=== PATIENT | female | born 1975 | race Caucasian/White ===

== ENCOUNTER 2020-01-13 07:27 | Inpatient (IN) | payer MEDICAID ==
[2020-01-13] MEDS ORDERED: Acetaminophen 500 MG Tab PO ONE (07:45)
[2020-01-13] MEDS ORDERED: Scopolamine 1.5 MG Transdermal Patch TOP ONE (07:45)
[2020-01-13] MEDS ORDERED: Albuterol 8 GM Inhaler INH ONE (08:30)
[2020-01-13] MEDS ORDERED: Dextrose 5%-Lactated Ringers 1,000 ML IV SCH (09:00)
[2020-01-13] MEDS ORDERED: Levofloxacin/Dextrose 5%-Water 500 MG in Premix Bag 1 BAG IV ONE (09:00)
[2020-01-13] MEDS ORDERED: ALBUTEROL INH ONE (09:00)
[2020-01-13] MEDS ORDERED: Ketamine 50 MG in Sodium Chloride 0.9% 49.5 ML IV SCH (09:15)
[2020-01-13] MEDS ORDERED: Ketamine 500 MG/5 ML MDV IV SCH (09:15)
[2020-01-13] MEDS ORDERED: Magnesium Sulfate 3 GM in Sodium Chloride 0.9% 100 ML IV SCH (09:15)
[2020-01-13] MEDS ORDERED: fentaNYL 250 MCG/5 ML SDV ONE (09:25)
[2020-01-13] MEDS ORDERED: Midazolam 1 MG/ML 2 ML SDV ONE (09:25)
[2020-01-13] MEDS ORDERED: Rocuronium 50 MG/5 ML Vial ONE (09:26)
[2020-01-13] MEDS ORDERED: Succinylcholine 200 MG/10 ML MDV ONE (09:26)
[2020-01-13] MEDS ORDERED: Dexamethasone 4 MG/ML SDV ONE (09:26)
[2020-01-13] MEDS ORDERED: Propofol 200 MG/20 ML SDV ONE (09:26)
[2020-01-13] MEDS ORDERED: Glycopyrrolate 0.2 MG/ML 5 ML MDV ONE (09:26)
[2020-01-13] MEDS ORDERED: Ondansetron 4 MG/2 ML SDV ONE (09:26)
[2020-01-13] MEDS ORDERED: Neostigmine Methylsulfate 1 MG/ML 5 ML Syringe ONE (09:26)
[2020-01-13] MEDS ORDERED: cefOXitin 2 GM Vial ONE (10:10)
[2020-01-13] MEDS ORDERED: Lactated Ringers 1,000 ML ONE (11:36)
[2020-01-13] MEDS: Levofloxacin 500 MG/20 ML SDV ONE ×2 (12:07→12:45)
[2020-01-13] MEDS ORDERED: fentaNYL 100 MCG/2 ML SDV ONE (12:41)
[2020-01-13] MEDS ORDERED: fentaNYL 100 MCG/2 ML SDV IVPUSH ONE (13:25)
[2020-01-13] MEDS ORDERED: hydrOXYzine HCL 100 MG/2 ML SDV IM ONE (13:25)
[2020-01-13] MEDS ORDERED: Cyclobenzaprine 10 MG Tab PO PRN (14:16)
[2020-01-13] MEDS: Dextrose 5%-Lactated Ringers 1,000 ML IV SCH (14:29)
[2020-01-13] MEDS ORDERED: Metoclopramide 10 MG/2 ML SDV IVPUSH PRN (15:00)
[2020-01-13] MEDS ORDERED: Labetalol 20 MG/4 ML Syringe IVPUSH PRN (15:00)
[2020-01-13] MEDS ORDERED: Acetaminophen 500 MG Tab PO PRN (15:00)
[2020-01-13] MEDS ORDERED: Ondansetron 4 MG/2 ML SDV IVPUSH PRN (15:00)
[2020-01-13] MEDS ORDERED: Calcium Gluconate 10% 1 GM/10 ML SDV IVPUSH PRN (15:00)
[2020-01-13] MEDS ORDERED: hydrOXYzine HCL 100 MG/2 ML SDV IM PRN (15:00)
[2020-01-13] MEDS ORDERED: HYDROmorphone 1 MG/ML Syringe IV PRN (15:00)
[2020-01-13] MEDS ORDERED: diphenhydrAMINE 50 MG/ML SDV IVPUSH PRN (15:00)
[2020-01-13] MEDS ORDERED: Albuterol/Ipratropium 3.0-0.5 MG/3 ML Neb Soln INH PRN (15:00)
[2020-01-13] MEDS ORDERED: MVI, Adult with Vitamin K 10 ML, Thiamine 200 MG, Chromium/Copper/Mang/Selen/Zn 1 ML in... IV SCH ×4 (16:00)
[2020-01-13] MEDS ORDERED: Pantoprazole 40 MG Vial IVPUSH SCH (16:00)
[2020-01-13] MEDS: Albuterol/Ipratropium 3.0-0.5 MG/3 ML Neb Soln INH SCH ×2 (16:30→22:45)
[2020-01-13] MEDS: Acetaminophen 500 MG Tab PO SCH (16:30)
[2020-01-13] MEDS: Heparin Sodium 5,000 Units/ML Vial SUBCUT SCH (21:36)
[2020-01-13] MEDS: HYDROmorphone 0.5 MG/0.5 ML Syringe IVPUSH PRN (21:37)
[2020-01-14] MEDS: Dextrose 5%-Lactated Ringers 1,000 ML IV SCH ×3 (00:24→15:46)
[2020-01-14] MEDS: Acetaminophen 500 MG Tab PO SCH ×3 (00:24→15:46)
[2020-01-14] MEDS: HYDROmorphone 0.5 MG/0.5 ML Syringe IVPUSH PRN (02:56)
[2020-01-14] MEDS ORDERED: Iopamidol 612 MG/ML 50 ML SDV PO STA (04:23)
[2020-01-14] MEDS ORDERED: hydrOXYzine HCl 25 MG Tab PO PRN (07:17)
[2020-01-14] MEDS: Albuterol/Ipratropium 3.0-0.5 MG/3 ML Neb Soln INH SCH ×4 (07:23→20:09)
[2020-01-14] MEDS: Heparin Sodium 5,000 Units/ML Vial SUBCUT SCH ×2 (08:25→20:09)
[2020-01-14] MEDS: oxyCODONE 5 MG Tab PO PRN ×3 (08:25→20:09)
[2020-01-14] MEDS: Cetirizine 10 MG Tab PO SCH (08:26)
[2020-01-14] MEDS: SCOPOLAMINE PATCH CHECK TOP SCH (08:26)
[2020-01-14] MEDS ORDERED: Celecoxib 200 MG Cap PO SCH (09:00)
--- NOTE | 2020-01-14 09:06 | CR ---
[facility]I [facility] HISTORY: Postbariatric surgery FINDINGS: Patient swallowed water-soluble contrast. Upright views of the abdomen show no evidence of extravasation or obstruction. There is a surgical drain in the left upper quadrant IMPRESSION: Status post bariatric surgery No extravasation or obstruction seen
[2020-01-14] MEDS: Levofloxacin/Dextrose 5%-Water 500 MG in Premix Bag 1 BAG IV SCH (10:25)
--- NOTE | 2020-01-14 10:54 | PN ---
DATE OF SERVICE: 01/14/2020 SUBJECTIVE: Candy is postop day #1 following a laparoscopic Pam-en-Y gastric bypass surgery. Upper GI was normal. Vital signs have been stable. Oral intake 300. Urine output 3000. JESSI drain put out 40 mL of a light pink drainage. Pain has been controlled with IV Dilaudid. Remainder of review of symptoms negative for any pertinent positives and negatives. OBJECTIVE: GENERAL: Candy is a 44-year-old female. VITAL SIGNS: TPR at 0300, 98.2, 82, 16, blood pressure 128/67. HEENT: Negative. NECK: Supple. HEART: Regular rate and rhythm. LUNGS: Clear. ABDOMEN: Dressings dry and intact. JESSI drain intact. Abdominal binder is on. EXTREMITIES: Without peripheral edema. ASSESSMENT: 1. Diagnostic laparoscopy with: a. Laparoscopic Pam-en-Y gastric bypass surgery. b. Liver biopsy. c. Repair of left parasternal hernia. d. Repair of paraesophageal hernia. e. Partial gastrectomy.2. Esophagogastric dilatation, 48-Armenian. POSTOPERATIVE DIAGNOSES: 1. Morbid obesity. 2. Hepatomegaly. 3. Paraesophageal diaphragmatic hernia. 4. Left parasternal diaphragmatic hernia. 5. 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 6. Esophageal stricture. Date of procedure 01/13/2020. Surgeon: Parveen Mooney MD. PLAN: 1. Discontinue Celebrex. The patient had an anaphylactic reaction to sulfa, but there is a sulfa component in Celebrex. 2. Dressing off, may shower. 3. Step 2 gastric bypass diet with no cereal. 4. Decrease IV to 100 mL per hour. 5. Discontinue IV Dilaudid. 6. Atarax 25 mg p.o. q.4 hours p.r.n. pain. 7. Zofran ODT 4 mg every 4 hours p.r.n. nausea, vomiting. 8. Communication order to have 3 med cups at bedside to drink 1 every 20 minutes, which equals 3 per hour to assure adequate oral intake. Continue use of incentive spirometer 10 times every hour while awake and ambulate at least 6 times a day. 9. We will evaluate p.r.n. or in a.m. Rosaura Montana PA-C /[id number]
[2020-01-14] MEDS ORDERED: MVI, Adult with Vitamin K 10 ML, Thiamine 200 MG, Chromium/Copper/Mang/Selen/Zn 1 ML in... IV SCH ×4 (16:00)
[2020-01-14] MEDS ORDERED: Pantoprazole 40 MG Delayed-Release Granules 1 Packet PO SCH (16:30)
[2020-01-15] MEDS: Acetaminophen 500 MG Tab PO SCH ×2 (00:30→09:33)
[2020-01-15] MEDS: Ondansetron 4 MG Tab.DIS PO PRN ×2 (00:37→09:32)
[2020-01-15] MEDS: Dextrose 5%-Lactated Ringers 1,000 ML IV SCH (01:14)
[2020-01-15] MEDS: oxyCODONE 5 MG Tab PO PRN ×2 (04:28→09:32)
[2020-01-15] MEDS: Albuterol/Ipratropium 3.0-0.5 MG/3 ML Neb Soln INH SCH (07:43)
[2020-01-15 08:05] VITALS: BP 129/74; PULSE 84
[2020-01-15] MEDS ORDERED: Cyanocobalamin (Vitamin B12) 1,000 MCG/ML SDV IM ONE (09:00)
[2020-01-15] MEDS: Levofloxacin/Dextrose 5%-Water 500 MG in Premix Bag 1 BAG IV SCH (09:27)
[2020-01-15] MEDS: Heparin Sodium 5,000 Units/ML Vial SUBCUT SCH (09:34)
[2020-01-15] MEDS: Cetirizine 10 MG Tab PO SCH (09:34)
[2020-01-15] MEDS: SCOPOLAMINE PATCH CHECK TOP SCH (10:17)
--- NOTE | 2020-01-16 12:07 | DISCH ---
FINAL DIAGNOSES: 1. Morbid obesity. 2. Paraesophageal diaphragmatic hernia. 3. Left parasternal hernia. 4. Area of ischemic gastric pouch, status post formation of gastric pouch requiring additional gastric resection. 5. Esophageal stricture. 6. History of asthma. 7. History of migraines. OPERATIVE PROCEDURES: Done on 01/12: 1. Diagnostic laparoscopy with: a. Laparoscopic Pam-en-Y gastric bypass with long limb gastroenterostomy. b. Malvin-Cut needle liver biopsy. c. Repair of left parasternal hernia. d. Repair of paraesophageal diaphragmatic hernia. e. Partial gastrectomy. 2. Esophageal dilation. SUMMARY: This 44-year-old female presenting with longstanding morbid obesity and increasingly significant comorbidities. After preoperative evaluation and discussion, the patient underwent the above procedures. The patient of note was found to have a left parasternal hernia which was repaired in addition to the diaphragmatic paraesophageal type hernia. We were unable to pass through the area of the upper esophageal sphincter. The 25 mm EEA stapler anvil which required esophageal dilation intraoperatively, which was accomplished without difficulty. Postoperatively, the patient has done well. At this point, she is on step-2 diet and pain is managed with combination of Tylenol and some oxycodone. She will be discharged home on her usual medications other than holding the vitamins and other supplements until after the first appointment plus Tylenol 1 g q.6 hours p.r.n., oxycodone 5 mg q.6 hours p.r.n. pain #30, and we will send her home with 2 doses of milk of magnesia. Followup will be with Rosaura Montana on Friday, 01/23 at 8:20.
--- NOTE | 2020-01-20 11:45 | OR ---
DATE OF PROCEDURE: 01/13/2020 SURGEON: Parveen Mooney MD PREOPERATIVE DIAGNOSIS: Morbid obesity. POSTOPERATIVE DIAGNOSES: 1. Morbid obesity. 2. Marked hepatomegaly. 3. Paraesophageal diaphragmatic hernia. 4. Left parasternal diaphragmatic hernia. 5. Area of ischemia of gastric pouch status post formation of gastric pouch. 6. Esophageal stricture. OPERATIVE PROCEDURES: 1. Diagnostic laparoscopy with: a. Laparoscopic Pam-en-Y gastric bypass with long limb gastroenterostomy (59398). b. Malvin-Cut needle liver biopsy (13614). c. Repair of left parasternal hernia (01950). d. Repair of paraesophageal diaphragmatic hernia (04037). e. Partial gastrectomy (78167). 2. Esophageal dilation (67095). ANESTHESIA: General. FOR[employer] PROFESSOR: Rosaura Montana PA-C INDICATIONS FOR PROCEDURE: This is a 44-year-old presenting with longstanding morbid obesity and increasingly significant comorbidities. After preoperative evaluation and discussion, she wished to proceed with a gastric bypass procedure. Potential risks of the procedure including bleeding, infection, leaks from various GI tract closures, problems with bowel obstruction over time as well as possibility of cardiopulmonary, septic, or hemorrhagic complications leading to were discussed, and the patient wishes to proceed. DETAILS OF PROCEDURE: The patient was taken to the operating room. After general endotracheal anesthesia was induced, she was placed in a lithotomy position and the abdomen prepped and draped. 15 cm inferior and 5 cm left of the xiphoid process, a transverse incision was made and the peritoneal cavity entered under direct vision with an Optiview trocar, inflated to 15 mmHg pressure of CO2. Laparoscope was then reinserted. No underlying trocar insertion site injuries were seen. Following this, 5 additional trocars were placed across the upper and mid abdomen. Bilateral transversus abdominis plane blocks were then placed and the upper abdomen examined. The patient was noted to have marked hepatomegaly with liver volume being roughly 2 to 3 times normal and liver grossly fatty infiltrated. Malvin-Cut needle biopsies were obtained from left lobe of the liver. Minimal bleeding from the biopsy sites was controlled with electrocautery. The patient was noted at this point to have a left parasternal hernia. This initially contained some omentum within it, and given this, it was felt to be best repaired. Stab wounds were then placed in the left subcostal area and using suture passer, several sutures were placed with these being 0 Vicryl sutures closing the hernia and its fascial edge inferiorly. Once these were completed and tied, that repair appeared to be satisfactory. At this point, the omentum was retracted superiorly and the small bowel identified with ligament of Treitz. Small bowel was then traced out 125 cm distal to that point, where it was divided with a FIDENCIO stapler. Small bowel was then traced out additional 175 cm where the [id number] enteroenterostomy was accomplished with internal firing of the Endo-FIDENCIO 60 mm stapler, common opening was then closed transversely with the same stapler and angles anastomosed and mesenteric defect approximated with some 0 Ethibond stitch along with 4 mL of fibrin sealant. The divided end of the Pam limb was then from the mesentery for a few centimeters, which allowed an antecolic position of the Pam limb up to the level of the gastroesophageal junction without tension. The liver was then retracted anteriorly. The patient was noted to have moderate-sized paraesophageal hernia with prolapse of perigastric fat along with a portion of fundus in a plane anterior to the course of the esophagus. This was reduced and the peritoneum overlying was incised and reflected downward. An anterior repair of the diaphragmatic defect was then accomplished with 0 Ethibond sutures reinforced with PTFE pledgets. Gastrointestinal catheter was then inflated to 15 mL and pulled up snugly against the EG junction. The gastric wall over the apex balloon was then marked with electrocautery and balloon catheter deflated and pulled up from the esophagus. The lesser omental tissue adjacent to the gastric cardia was then incised allowing dissection behind the stomach at that level. Pouch formation was initiated with transverse firing of the FIDENCIO stapler at the level of cauterized leni on the gastric cardia and then completed with some additional firings of the FIDENCIO erwin up to and through the angle of His. Upon completion of the pouch, there was a notable area of ischemia in the distal aspect of the gastric pouch. This was retracted with some additional 2 firings of the FIDENCIO purple loads sent as a separate specimen. The anvil of a 25 mm EEA stapler was then attempted to be passed. This was attached to the Palermo sump type, which was brought down through the mouth, but taken out of the small opening into the gastric pouch. Despite various maneuvers and full muscle relaxation, the anvil could not be passed through the area of the upper esophagus. Given this, this was then pulled back out with the rescue strain. Esophagoscopy was then undertaken which showed a narrowing in the area of the upper esophageal sphincter likely related to some chronic reflux. Guidewire was passed. Upon removal of the scope, Savary dilator with 48-Bruneian diameter was passed over the wire, and at that point, the wire and dilator were removed. The anvil attached to the Palermo sump tube was then reintroduced and then this was easily passed from there brining the anvil into the area of the gastric pouch without difficulty. The Pam limb was then opened and main body of EEA stapler passed several centimeters into the lumen of small bowel, brought up the anvil and united with it, thus creating the gastrojejunostomy. Upon removal of the stapler, double donuts of the mucosa were noted within it. Small bowel was closed off with a vascular staple line. Gastrojejunostomy was reinforced with some 3-0 Vicryl seromuscular stitch along with fibrin sealant. A leak test was accomplished with injection of 120 mL of air in the gastric pouch while it was submerged with a cefoxitin containing saline solution. No leaks were identified. A single Peewee- [place] drain was then placed in the left lateral trocar site and positioned adjacent to the gastrojejunostomy, from there up into the splenic fossa. The trocars were then sequentially removed and the peritoneal cavity deflated. Incisions were closed with 4-0 Vicryl skin stitch and the patient was taken to the recovery room in satisfactory condition. Physician culinary assistant, Rosaura Montana, played an essential role in assisting in this case, helping to position the patient, retract structures as needed, as well as suturing and cutting sutures when indicated. Her presence improved patient safety and decreased operative time. Parveen Mooney MD /[id number]
== END 2020-01-15 10:46 | disposition home or self-care (01) | DRG 621 ==
LOC: JP.SDSSCHI 07:27 → JP.SDS 07:27 → EDSTATUS 11:15 → JP.2SS 13:05
PROVIDERS: ADMIT Surgery; ATTEND Surgery
PROC: 0D164ZA Bypass Stomach to Jejunum, Percutaneous Endoscopic Approach (ICD-10-PCS; principal; 2020-01-13)
PROC: 0FB24ZX Excision of Left Lobe Liver, Percutaneous Endoscopic Approach, Diagnostic (ICD-10-PCS; 2020-01-13)
PROC: 0BQT4ZZ Repair Diaphragm, Percutaneous Endoscopic Approach (ICD-10-PCS; 2020-01-13)
PROC: 0BQT4ZZ Repair Diaphragm, Percutaneous Endoscopic Approach (ICD-10-PCS; 2020-01-13)
PROC: 0D754ZZ Dilation of Esophagus, Percutaneous Endoscopic Approach (ICD-10-PCS; 2020-01-13)
PROC: 0DB64ZZ Excision of Stomach, Percutaneous Endoscopic Approach (ICD-10-PCS; 2020-01-13)
DX: E66.01 Morbid (severe) obesity due to excess calories (principal); K44.9 Diaphragmatic hernia without obstruction or gangrene; K22.2 Esophageal obstruction; J45.20 Mild intermittent asthma, uncomplicated; Z90.49 Acquired absence of other specified parts of digestive tract; R16.0 Hepatomegaly, not elsewhere classified; Z68.39 Body mass index [BMI] 39.0-39.9, adult
CPT/HCPCS: 36415; 74240; 74240-26; 80053; 81025; 83735; 84100; 86850; 86900; 86901; 88307; 88313; 93005; 93010; 94640; 94762; A9270-GY; C9113; J0171; J0330; J0694; J1100; J1170; J1644; J1956; J2250; J2405; J2704; J2710; J2795; J3010; J3410; J3411; J3420; J3475; J3490; J7030; J7050; J7120; J7121; J7620-GY; Q9967

== ENCOUNTER 2020-05-01 07:04 | Day surgery (SDC) | payer MEDICAID ==
[2020-05-01] MEDS ORDERED: Propofol 200 MG/20 ML SDV ONE (07:22)
[2020-05-01] MEDS ORDERED: Midazolam 1 MG/ML 2 ML SDV ONE (07:22)
[2020-05-01] MEDS ORDERED: fentaNYL 100 MCG/2 ML SDV ONE (07:22)
[2020-05-01] MEDS ORDERED: Cyanocobalamin (Vitamin B12) 1,000 MCG/ML SDV IM ONE (07:30)
[2020-05-01] MEDS ORDERED: Lactated Ringers 1,000 ML IV SCH (07:30)
[2020-05-01] MEDS ORDERED: Glycopyrrolate 0.2 MG/ML 2 ML SDV IVPUSH ONE (08:15)
[2020-05-01] MEDS ORDERED: MVI, Adult with Vitamin K 10 ML, Thiamine 200 MG, Chromium/Copper/Mang/Selen/Zn 1 ML in... IV ONE ×4 (08:30)
[2020-05-01] MEDS ORDERED: Dexamethasone 4 MG/ML SDV ONE (09:22)
[2020-05-01] MEDS ORDERED: Famotidine 20 MG/2 ML SDV IVPUSH PRN (10:13)
[2020-05-01] MEDS ORDERED: diphenhydrAMINE 50 MG/ML SDV IVPUSH PRN (10:13)
[2020-05-01] MEDS ORDERED: Hydrocortisone Sodium Succinate 100 MG/2 ML SDV IVPUSH PRN (10:13)
[2020-05-01] MEDS ORDERED: Sodium Chloride 0.9% 1,000 ML IV SCH (10:15)
[2020-05-01 11:07] VITALS: PULSE 67
[2020-05-01 11:26] VITALS: BP 114/75
--- NOTE | 2020-05-07 11:46 | OR ---
DATE OF PROCEDURE: 05/01/2020 SURGEON: Parveen Mooney MD PREOPERATIVE DIAGNOSIS: Probable stricture at gastrojejunostomy. POSTOPERATIVE DIAGNOSIS: Mild stricture at gastrojejunostomy. OPERATIVE PROCEDURE: Upper gastrointestinal endoscopy with dilation of gastrojejunostomy (28734). ANESTHESIA: IV sedation. INDICATION FOR PROCEDURE: This is a 44-year-old status post a Pam-en-Y gastric bypass in December. She presents now with symptoms suggestive of stricturing at her gastrojejunostomy. Plan is to proceed with an upper GI endoscopy with dilation as indicated. Potential risks including bleeding and perforation were discussed, and the patient wishes to proceed. DETAILS OF PROCEDURE: The patient was taken to the operating room and placed in a left lateral decubitus position. IV sedation was administered, after which the upper GI endoscope was passed orally through the length of esophagus into the gastric pouch. No retained food or fluid was noted. The patient was noted to have mild stricture of the gastrojejunostomy with 1 cm scope being able to be passed through the anastomosis. Beyond that, no abnormalities noted. At this point, a Bard gastrointestinal catheter was centered across the anastomosis and inflated to 36-Japanese. This was held in position for 1 minute, after which the balloon catheter was deflated and withdrawn. There was some dilation of the anastomosis confirmed. No complications were evident and the procedure then concluded. The patient was taken to the recovery room in satisfactory condition. One additional note on this patient is a recent ferritin level was 28 and given this, the patient will be given a single dose of 510 mg of Feraheme IV today, and follow up with Rosaura Montana will be in roughly 1 month. Parveen Mooney MD /[id number]
== END 2020-05-01 11:40 | disposition home or self-care (01) ==
LOC: JP.SDS 07:04
PROVIDERS: ATTEND Surgery
DX: K95.89 Other complications of other bariatric procedure (principal); K91.30 Postprocedural intestinal obstruction, unspecified as to partial versus complete; K31.89 Other diseases of stomach and duodenum; J45.909 Unspecified asthma, uncomplicated; E66.9 Obesity, unspecified; Z68.29 Body mass index [BMI] 29.0-29.9, adult
CPT/HCPCS: J1100; J2250; J2704; J3010; J3411; J3420; J3490; J7030; J7120; Q0138

== ENCOUNTER 2020-08-03 08:02 | Day surgery (SDC) | payer MEDICAID ==
[2020-08-03] MEDS ORDERED: Dextrose 5%-Lactated Ringers 1,000 ML IV SCH (09:15)
[2020-08-03] MEDS ORDERED: fentaNYL 100 MCG/2 ML SDV ONE (09:30)
[2020-08-03] MEDS ORDERED: Propofol 200 MG/20 ML SDV ONE (09:31)
[2020-08-03] MEDS ORDERED: Midazolam 1 MG/ML 2 ML SDV ONE (09:31)
[2020-08-03 11:58] VITALS: BP 106/64; PULSE 73
--- NOTE | 2020-08-06 12:07 | OR ---
DATE OF PROCEDURE: 08/03/2020 SURGEON: Parveen Mooney MD PREOPERATIVE DIAGNOSIS: Persistent left upper quadrant and mid abdominal pain, status post Pam-en-Y gastric bypass with CAT scan suggestive of thickening of transverse and descending colon. POSTOPERATIVE DIAGNOSIS: Normal colonoscopic examination other than for limited left colonic diverticulosis. OPERATIVE PROCEDURE: Flexible colonoscopy. ANESTHESIA: IV sedation. INDICATIONS FOR PROCEDURE: The patient is status post Pam-en-Y gastric bypass in December of the past year. She has had now period of persistent pain in the left upper quadrant radiating towards the midline. A CT scan of the abdomen was obtained, which showed some possible thickening of the transverse and descending colon, although the patient does not really have any visceral symptoms in terms of any nausea, vomiting, crampy abdominal pain, and/or blood or bleeding in the stool, and the pain does not appear to be related to eating. Similarly, this increased somewhat with activity. To rule out any underlying colonic abnormalities, the patient will undergo a colonoscopy with biopsies and/or polypectomy as indicated. Potential risks including bleeding and perforation were discussed and the patient wishes to proceed. DETAILS OF PROCEDURE: The patient was taken to the operating room and placed in a left lateral decubitus position. IV sedation was administered after which the initial digital rectal exam was performed and was unremarkable. Colonoscope was then passed into the rectum with retroflexion revealing uncomplicated hemorrhoidal columns. Scope was eventually passed to the level of the cecum, and the prep was quite good with only small amount of liquid stool present. To that level, there was some very rare left colonic diverticulosis, which was otherwise uncomplicated. Apart from that, there were no areas of colitis, mucosal thickening, or redness and no areas of polyps or other signs of neoplasia. Scope was then withdrawn. The above findings reconfirmed, and the procedure was then concluded. RECOMMENDATIONS: Would be to continue to follow the issue. At this point, this probably is not a visceral issue but maybe somehow musculoskeletal. Unsuccessful examination was done to establish any tenderness either on palpation of the ribs or costal cartilages or over the left mid abdomen and based on lack of visceral symptoms, this is probably related to the GI tract per se. The patient will be taking Tylenol as needed. She is allergic to sulfa, so Celebrex is contraindicated. Anyway in the gastric bypass status, tolerating nonsteroidal anti-inflammatories would be somewhat problematic, and the patient is comfortable proceeding with that management approach. She does note that with her first she had similar discomfort, which did not result in any significant diagnosis. She will follow up with Rosaura Montana in 1 month. Parveen Mooney MD /[id number]
== END 2020-08-03 12:10 | disposition home or self-care (01) ==
LOC: JP.SDS 08:02
PROVIDERS: ATTEND Surgery
DX: K57.30 Diverticulosis of large intestine without perforation or abscess without bleeding (principal); Z98.84 Bariatric surgery status; Z88.2 Allergy status to sulfonamides
CPT/HCPCS: 81025; J2250; J2704; J3010; J7121